=== PATIENT | male | born 2000 | race Caucasian/White ===

== ENCOUNTER → 2024-12-04 | Outpatient (CLI) | LOC: M SOG 15:03 | PROVIDERS: ATTEND Neuromusculoskeletal Medicine, Sports Medicine | DX: M25.531 Pain in right wrist (principal) ==

== ENCOUNTER → 2024-12-17 | Outpatient (CLI) | payer OTHER | LOC: M SOG 07:54 | PROVIDERS: ATTEND Physician Assistant | DX: S62.001A Unspecified fracture of navicular [scaphoid] bone of right wrist, initial encounter for closed fracture (principal); W18.30XA Fall on same level, unspecified, initial encounter; Y92.009 Unspecified place in unspecified non-institutional (private) residence as the place of occurrence of the external cause ==

== ENCOUNTER → 2025-01-24 | Outpatient (CLI) | payer OTHER | LOC: M SOG 08:23 | PROVIDERS: ATTEND Physician Assistant | DX: S62.001A Unspecified fracture of navicular [scaphoid] bone of right wrist, initial encounter for closed fracture (principal); W18.30XA Fall on same level, unspecified, initial encounter; Y92.009 Unspecified place in unspecified non-institutional (private) residence as the place of occurrence of the external cause ==